=== PATIENT | male | born 1965 | race Caucasian/White ===

== ENCOUNTER → 2021-12-29 10:06 | Outpatient (CLI) | payer OTHER, SELFPAY ==
--- NOTE | ~2021-12-29 | CT_ITS ---
EXAMINATION: CT lung screening DATE: 12/29/2021 10:20 INDICATION: Personal history of nicotine dependence, current smoker with 40 pack year history TECHNIQUE: Computed tomography (CT) of the chest was performed without intravenous contrast. The dose -length product (DLP) was 202.01 mGy-cm. Automated exposure control and iterative reconstruction tech Rukuku were employed. COMPARISON: None FINDINGS: There is a 3 mm nodule of the right upper lobe on image 42. There is mild emphysema. The josefina ngs are free of acute opacities. No pleural effusion or pneumothorax. No pathologically enlarged thor acic lymph nodes are identified. The heart size is normal. Subendocardial fat deposition in the left ventricular apex could reflect prior myocardial infarction. A 1.4 cm low-density mass of the right ad renal gland is consistent with an adenoma. There is moderate thoracic spondylosis. IMPRESSION: 1. Lung-RADS category 2: Benign appearance or behavior. Continue annual screening with noncontrast lo w-dose chest CT in 12 months. Reviewed, dictated and finalized at location [facility]. E DISCHARGE IMPRESSION: 1. Lung-RADS category 2: Benign appearance or behavior. Continue annual screeni ng with noncontrast low-dose chest CT in 12 months.
== END ==
PROVIDERS: PCP Family Medicine; Visit Provider Physician Assistant
DX: Z12.2 Encounter for screening for malignant neoplasm of respiratory organs (principal); Z87.891 Personal history of nicotine dependence
CPT/HCPCS: 71271

== ENCOUNTER 2022-02-19 02:06 | Day surgery (SDC) | payer OTHER, SELFPAY ==
[2022-02-17 14:05] VITALS: BMI 31.4
--- NOTE | 2022-02-17 14:24 | PC.NURSE ---
Report to the Outpatient Waiting Room, entrance under the green pavilion located off [facility], at time 1000 on date 02/19/22. Planned Procedure Time: 1200. Time changes happen often and if your time is changed the preop area will call you the afternoon before. - You and your visitor will be asked to self-screen and do not enter if you have any COVID symptoms. - Only one visitor is requested with a max of two and NO children visitors are allowed at this time. - The patient visitor may be requested to leave or wait in car when not with patient due to distancing restrictions. - A mask is REQUIRED within the hospital. Patients may have clear liquids (water, carbonated beverages, clear teas, apple juice) until 3 hours prior to surgery with a maximum of 20 ounces. - No food from midnight until time of surgery Take the following medications with a SIP of water the morning of surgery: ANTIBIOTIC, TRAMADOL IF NEEDED Medications to discontinue per physician: VITAMINS/SUPPLEMENTS Date to take last dose: NO MORE UNTIL AFTER SURGERY Please no make-up, nail icelandic, hairspray, perfume, deodorant, or body powder the day of surgery. No jewelry (including any body piercings) or valuables the day of surgery, leave them at home. Please take a shower or bath the night before, or the morning of, surgery with an antibacterial soap. Wear comfortable, loose fitting clothing. - Jewelry must be removed prior to entering the operating room. Rings and piercings that are not removed may be cut off. - The hospital will not accept responsibility for valuables. - Please leave all valuables, including medications, at home the day of surgery. If you are going home after surgery, a licensed front loader residential driver must drive you home. - NO public transportation without another adult if you receive anesthesia. - We recommend that an adult stay with you for 24 hours following discharge. - We also recommend that you do not drive, make important decision, drink alcoholic beverages, or take any drugs that were not prescribed by your health care provider for at least 24 hours after your discharge time. Follow any additional instructions given to you from your surgeon. If you or anyone in your household have experienced Covid symptoms in the past week, please notify your surgeon or the nurse liaison at the phone number below for possible testing. Telephone instructions given to PT - BRUCE BEE and asked if any additional questions and then verbalized understanding. Patient advised to call surgeon office or pre surgery nurse liaison [phone] if any additional questions.
[2022-02-19] VITALS (13 sets, daily range): BP systolic 148–193; BP diastolic 75–103; PULSE 79–109; RESP 12–16; TEMP 36.3–37.1; O2SAT 95–100
--- NOTE | 2022-02-19 07:12 | WPDHPUPDATE1 ---
History and Physical Update Update Date/Time: 02/19/22 07:12 History and Physical has been reviewed, including an updated exam of the patient. There are NO changes in the patient's condition. Risks, benefits, and alternatives have been discussed and questions answered. Patient agrees to proceed with procedure.
--- NOTE | 2022-02-19 10:10 | ECG_ITS ---
Measurements Intervals [place] Rate: 91 P: 55 W[place]: 163 QRS: 30 QRSD: 89 T: 13 QT: 344 QTc: 425 Interpretive Statements SINUS RHYTHM NORMAL ECG NO PREVIOUS ECG AVAILABLE FOR COMPARISON Electronically Signed On 02-19-2022 13:05:48 TRUCK BENCH MECHANIC by Hayden Otero D.O.
--- NOTE | 2022-02-19 10:45 | WPDANESEPPF ---
Anes - Initial Pre Proc Eval Procedure: Operation Date: 02/19/22 12:00 Proposed Procedures p Repair Flexor Pollicus Longus Left Thumb, Possible Digital Nerve Repair - Jack Jackson MD Date/Time: 02/19/22 10:45 Surgeon: Jack Jackson MD Pre Op Diagnosis: laceration left flexor pollicus longus Patient Data Age: 56 Gender: M Height: 1.8 m Weight: 102 kg Allergies Allergy/AdvReac Type Severity Reaction Status Date / Time No Known Allergies Allergy Mild Verified 02/19/22 10:36 Home Medications Medication Instructions Recorded Confirmed Type omeprazole 20 mg capsule,delayed 20 mg PO DAILY #90 caps 01/13/22 02/17/22 Rx release amoxicillin 875 mg-potassium 1 tablet PO BID 02/17/22 02/17/22 History clavulanate 125 mg tablet multivitamin 1 tablet PO DAILY 02/17/22 02/17/22 History omega 1-cqz-tyt-fish oil 1,000 mg 1 cap PO DAILY 02/17/22 02/17/22 History (120 mg-180 mg) capsule (Fish Oil) tramadol 50 mg tablet 50 mg PO Q8H PRN Pain 02/17/22 02/17/22 History Patient hx anesthesia problems: none Family hx anesthesia problems: none Results Review: All pre-operative results and documents have been reviewed as part of the pre-operative evaluation. [facility] Past Medical History Medical History (Updated 02/19/22 @ 10:46 by Michael Brizuela DO) Broken ankle (~2015) CAD (coronary artery disease) History of heart attack per MRI, unknown when ROSALINE (obstructive sleep apnea) undiagnosed Surgical History Surgical History H/O hernia repair Family History Family History Father Hypertension Family history of elevated blood lipids Family history of alcoholism Mother Hypertension Grandparent Hypertension Family history of elevated blood lipids Family history of cardiovascular disease Sibling Hypertension Family history of elevated blood lipids Other Family history of hypercholesterolemia Malignant neoplasm of prostate Social History Social History Smoking packs per day: 1 Smoking cigarettes per day: 20.0 Years smoked: 40 Smoking pack-years: 40.00 Smoking status: Current every day smoker Tobacco type: cigarettes Alcohol intake: current Drinks per week: 20 Alcohol use details: MIXED DRINKS Substance use: former Substance use type: marijuana 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 Informed Consent: The patient's anesthetic plan and its attendant risks and benefits were discussed with the patient/family/POA. Questions were solicited and answers provided to the satisfaction of the patient/family/POA.
[2022-02-19] MEDS: LACTATED RINGERS 1,000 ML 30 ML IV CONT ×3 (11:00→17:51)
[2022-02-19] MEDS: ACETAMINOPHEN 500 MG TABLET 1000 MG PO (11:16)
[2022-02-19] MEDS: LABETALOL HCL INJ 100 MG/20 ML VIAL IV PUSH (11:58)
[2022-02-19] MEDS: ceFAZolin 2 GM/D5W 50 ML 2 GM/50 ML BAG IVPB (12:38)
[2022-02-19] MEDS: BUPIVACAINE HCL 0.25% PF 30 ML VIAL INFILTRATE (15:46)
[2022-02-19] MEDS: ONDANSETRON INJ 4 MG/2 ML VIAL IV PUSH ×2 (16:40→17:47)
[2022-02-19] MEDS: SCOPOLAMINE 1.5 MG PATCH TRANSDERM (16:51)
--- NOTE | 2022-02-19 17:34 | W.PM.PROC2 ---
Procedure Note - Detailed Date of Procedure 02/19/22 Pre-op Diagnosis laceration left flexor pollicus longus Post-op Diagnosis Other (Complete laceration of the flexor pollicis longus and ulnar digital nerve of the left thumb.) Procedure Performed Primary tenorrhaphy of the flexor pollicis longus in zone 2 and primary neurorrhaphy of the ulnar digital nerve of the left thumb Surgeon Jack Jackson MD Cloud Systems Architect Ayala/Ragini Cormier Anesthesia General Indications Acute laceration of the volar left thumb with loss of sensation and flexor function Description of Procedure The patient was in a splint already waiting in the holding area. The site was marked. He was taken to the operating room where he was placed supine on operating table. He was given general anesthesia with endotracheal tube. He was then turned prone on the operating table. All pressure points were padded. The chest was supported as was the face. The left upper extremity was rotated to allow supination of the palm for access. The splint and bandage were removed and the left upper extremity was prepped and draped in usual fashion. The sites were marked for the Hero incision. This area was infiltrated with 2% lidocaine with epinephrine. The extremity was exsanguinated with an Esmarch wrap and the tourniquet inflated 250 mmHg. It was initially up for 87 minutes followed by 15 minute release and was up a 2nd time for 37 minutes. The incisions were made as marked beginning with the opening of the laceration. This was extended in Hero fashion as far as was needed to expose the neurovascular bundles and identified the proximal tendon stump. The radial digital nerve was noted to be intact. The ulnar digital nerve was found to be divided. The distal stump was identified and a 6 0 nylon suture placed nearby to allow rapid the identification. The tendon was found to be divided near the proximal aspect of the A2 crow. The A2 crow was divided to a allow access for suture placement. The proximal stump was identified distal to the A1 crow. A small transverse incision was made in the oblique crow to allow retrieval of the stump. A 4-0 nylon suture was placed at that point to allow passage of that into the oblique crow using the [employer] device. The tendon was stabilized with a transfixing 25 gauge needle. The nylon suture was removed and the tendon repair was done with 3-0 FiberWire and a 4 strand locked cruciate technique. The partially circumferential 6 0 nylon whipstitch completed the repair. We utilized the rent in the oblique crow to demonstrate active flexion and satisfactory movement of the repair by pulling the tendon with the Ragnell retractor.. A 2 mm additional andrés was made at the distal end of the oblique crow. At that point the tourniquet was released for 15 minutes. The tourniquet was reinflated to 250 mmHg after re exsanguinating the extremity. The microscope was brought in and the repair of the fairly large proximal stump to 2 smaller distal stumps of the ulnar and digital nerve was done with 9 0 nylon at 3 sites.. The skin was closed with the running 4-0 nylon suture. 5 milliliter of additional a 0.25% Marcaine plain was administered. Sometimes allowed for control of bleeding by compression. The dressing was applied to include a 3 in ortho glass splint with the thumb flexed at all 3 joints and the wrist flexed about 20?. The patient was returned to a supine position, extubated and transported to the recovery room in stable condition. Estimated Blood Loss 20 Tourniquet Time 124 Drains No Packing No Pathology None sent Complications No immediate complications Condition Stable Disposition PACU
[2022-02-19] MEDS: diphenhydrAMINE HCl INJ 50 MG/ML VIAL 12.5 MG IV PUSH (18:30)
--- NOTE | 2022-02-19 18:46 | SUR.PHASEII ---
1745: BP was on the RIGHT ARM not the LEFT.
== END 2022-02-19 19:05 | disposition home or self-care (01) ==
PROVIDERS: PCP Family Medicine; Visit Provider Plastic Surgery
PROC: (CPT 26356; principal; 2022-02-19 12:00)
DX: S66.022A Laceration of long flexor muscle, fascia and tendon of left thumb at wrist and hand level, initial encounter (principal); S64.32XA Injury of digital nerve of left thumb, initial encounter; W26.0XXA Contact with knife, initial encounter; Y93.G1 Activity, food preparation and clean up; F17.210 Nicotine dependence, cigarettes, uncomplicated; I25.10 Atherosclerotic heart disease of native coronary artery without angina pectoris; I25.2 Old myocardial infarction; G47.33 Obstructive sleep apnea (adult) (pediatric); E66.9 Obesity, unspecified; Z68.30 Body mass index [BMI] 30.0-30.9, adult
CPT/HCPCS: 26356; 64831; 93005; A9270; J0330; J0690; J1100; J1170; J1200; J2250; J2370; J2405; J2704; J3010; J7120

== ENCOUNTER 2022-05-04 08:00 | Outpatient (RCR) | payer OTHER, SELFPAY ==
--- NOTE | 2022-03-03 09:22 | OTOPEVAL1 ---
Assessment and note entered by Aman Frias, RADHA/Kamar, CHT Evaluation Information Assessment Status Evaluation Diagnosis s/p left FPL and ulnar digital nerve repair Onset 02/19/22 Subjective Information Patient had a complete laceration of the FPL and ulnar digital nerve of the left thumb. He is s/p primary tenorrhaphy of the FPL in zone 2 and primary neurorrhaphy of the ulnar digit nerve of the left thumb. He presents today for fabrication of a removable splint and initiation of ROM exercises. He is reporting severe pain in the thumb/hand. Upon removing the ortho glass splint and dressings, there is macerated skin on the volar thumb and he was particularly fixated on this. The new splint is allowing this area to be open to air to dry out. The sutures and wound look good - no signs of infection. Reported Pain Level Pain Score 0: Self Report Additional Pain Score Comments No pain after splinting and exercises. States it feels much better than prior to our appointment. Assessment OT Clinical Summary Patient referred to outpatient hand therapy following a FPL tendon repair and ulnar digital nerve repair about 2 weeks ago. Today a removable thermoplastic splint was fabricated to allow him to begin controlled active and passive thumb flexion with dorsal blocking to prevent thumb extension and too much strain on the repair. He was educated on precautions and tendon repair rehab and verbalized good understanding. Continued skilled OT indicated to progress exercises, initiate scar management following suture removal, and use of modalities for reduced pain, scar tissue, and stiffness. Plan of Care Interventions Therapeutic Exercise,Manual Therapy,Therapeutic Activities,Hot Pack/Cold Pack,Check Out for Orthotic/Pr,Ultrasound,Paraffin OT Services Indicated Yes Treatment Frequency and 1-2x/week for 6 weeks Duration These treatments will address the objective and functional deficits as defined above. The patient will be advanced safely and appropriately in order for the patient to progress towards his/her prior level of function. Additional exercises will be introduced and as well as a comprehensive home exercise program upon discharge, if needed, ?to ensure carryover of functional gains achieved in the clinic. This treatment plan has been reviewed and agreement upon by the patient.
--- NOTE | 2022-04-06 12:49 | PCOTNOTE ---
Patient did not show for his scheduled treatment session today. Called patient who reports he thought his appointment was tomorrow. Rescheduled the patient.
--- NOTE | 2022-04-13 10:55 | OTOPPROG ---
Assessment and note entered by Aman Frias, RADHA/Kamar, CHT Evaluation Information Assessment Status Progress Report Diagnosis s/p left FPL and ulnar digital nerve repair Onset 02/19/22 Subjective Information -Patient had a complete laceration of the FPL and ulnar digital nerve of the left thumb. He is s/p primary tenorrhaphy of the FPL in zone 2 and primary neurorrhaphy of the ulnar digit nerve of the left thumb. He is 7.5 weeks post op today. Therapy has been focusing on functional ROM and use of the left thumb. -During functional tasks, the patient completely avoids using the thumb. Requires constant reminders and encouragement to use the thumb. For example, when pulling a paper towel out of the carrasco, he uses his index and middle fingers instead of thumb to pinch and pull. He avoids picking up any items, light items such as a piece of paper, with the thumb. We have been working on thumb use for light tasks for 2 weeks now. Limited carryover. -Patient has been very hesitant to use the thumb. He has required significant amount of education and encouragement to be compliant with his HEP. He will admit to not doing any of the exercises outside of therapy. -Today the thumb IP is actively only bending 15 degrees. Passively we are able to achieve 45 degrees. Due to this difference in active vs. passive, some gentle resistive exercises have been initiated early to facilitate improved tendon excursion. There are concerns for scar tissue formation inhibiting the return of functional ROM at the IP due to limited patient compliance with HEP. Assessment OT Clinical Summary Patient referred to outpatient hand therapy following a FPL tendon repair and ulnar digital nerve repair. Therapy has progressed from passive ROM to active ROM and now active resistive ROM. The splint has been discharged and he has been encouraged to use the thumb for light tasks. Very limited carryover on HEP and education. He continues to avoid using the thumb and needs constant reminders to remember to use the thumb. There are concerns for scar tissue formation inhibiting functional flexion of the IP joint. Will continue to monitor this as progressive strengthening is continued at therapy. He will
--- NOTE | 2022-05-04 08:32 | OTOPDC ---
Assessment and note entered by Aman Frias, MARLEYR/Kamar, CHT Evaluation Information Assessment Status Discharge Diagnosis s/p left FPL and ulnar digital nerve repair Onset 02/19/22 Subjective Information -Patient had a complete laceration of the FPL and ulnar digital nerve of the left thumb. He is s/p primary tenorrhaphy of the FPL in zone 2 and primary neurorrhaphy of the ulnar digit nerve of the left thumb. He is 10.5 weeks post op today. Therapy has been focusing on functional ROM and strength. -During functional tasks, the patient continues to avoid using the thumb. Requires constant reminders and encouragement to use the thumb. For example, picking up his sun glasses or a pen he uses his index and middle fingers only. Provided extensive education and reminders on using the thumb is the best therapy. Very limited carryover. -Today the thumb IP is actively only bending 15 degrees. This has remained unchanged since our last progress update on 04/13/22. Passively we are able to achieve 45 degrees. -There are concerns for scar tissue formation inhibiting the return of functional ROM at the IP due to limited patient compliance with HEP. He reports he has only used his putty once since it was issued 3 weeks ago. -Steam Pan Sponger strength has decreased by 10 lbs., measuring 55 lbs. today -Palmar pinch measures 3 lbs. -Tip pinch measures 2 lbs. Reported Pain Level Pain Score 0: Self Report Assessment OT Clinical Summary Patient referred to outpatient hand therapy following a FPL tendon repair and ulnar digital nerve repair. Therapy has progressed from passive ROM to active ROM and resistive ROM. The patient continues to avoid using the thumb despite constant education and encouragement to do so. Very limited carryover on HEP and education. There are concerns for scar tissue formation inhibiting functional flexion of the IP joint as the IP joint flexes 15 degrees and has not progressed past 15 deg. x3 weeks. At this time therapy is discharging with the patient independent with all materials. Plan of Care OT Services Indicated No
== END 2022-05-05 09:31 | disposition home or self-care (01) ==
LOC: ANHOT 08:00
PROVIDERS: PCP Family Medicine; Visit Provider Plastic Surgery
DX: Z48.89 Encounter for other specified surgical aftercare (principal)
CPT/HCPCS: 97018; 97110; 97140; 97165; 97530; 97763; 99199; L3806